=== PATIENT | female | born 1995 | race Hispanic/Latino ===

== ENCOUNTER 2019-04-28 19:24 | Emergency (ER) | payer SELFPAY ==
[~2019-04-28] VITALS: Ht 167.6 cm; Wt 149.7 kg
--- OUTSIDE RECORDS SUMMARY | 2019-04-28 19:27 | XMS REPORT ---
[facility] Address Unknown Phone Unavailable Care Team Providers Care B2B Sales Representative Name Role Phone Jolie VILLALBA Unavailable Unavailable Problems This patient has no known problems. Allergies, Adverse Reactions, Alerts This patient has no known allergies or adverse reactions. Medications This patient has no known medications. Results Test Description Test Time Test Comments Text Results Atomic Results Result Comments ABDOMEN ACUTE SERIES W/PA CXR [place] [address] Patient Name: JALEN AGUILERA MR #: [id number] : 1995 Age/Sex: 21/F Req #: [id number] Adm Physician: Ordered by: SONU VILLALBA MD Report #: [id number] Location: ER Room/Bed: Procedure: [id number] DX/ABDOMEN ACUTE SERIES W/PA CXR Exam Date: 03/26/17 Exam Time: 2245 REPORT STATUS: Signed EXAM: ABDOMEN ACUTE SERIES W/PA CXR DATE: 03/26/2017 10:10 PM Time stamp on exam: 2234 hours INDICATION: Abdominal pain COMPARISON: None FINDINGS: LINES/TUBES: None BOWEL PATTERN: No evidence for obstruction. SOFT TISSUES: No abnormal calcifications. No mass effect. LUNGS: The thorax is unremarkable BONES: No acute findings. IMPRESSION: Nonobstructive bowel gas pattern. No acute intrathoracic disease Signed by: Dr. Jef Cardoso M.D. on 03/26/2017 11:45 PM Dictated By: JEF AVINA MD [id number] Transcribed By: EDMAR on 03/26/17 2345 COPY TO: SONU VILLALBA MD
[2019-04-28 20:41] LABS: BILIRUBIN,URINE NEGATIVE (NEGATIVE); CLARITY,URINE SL CLOUDY (CLEAR); COLOR,URINE YELLOW (YELLOW); KETONES,URINE TRACE (NEGATIVE); LEUKOCYTE ESTERASE ,URINE TRACE (NEGATIVE); NITRITE,URINE NEGATIVE (NEGATIVE); PROTEIN,URINE DIPSTICK NEGATIVE (NEGATIVE); URINE UROBILINOGEN 0.2 mg/dL (0.2 - 1)
[2019-04-28 20:44] LABS: PREGNANCY TEST, URINE NEGATIVE (NEGATIVE)
[2019-04-28] MEDS ORDERED: HYDROCODONE/APAP 5MG-325MG TAB PO ONE (20:45)
[2019-04-28] MEDS ORDERED: KETOROLAC TROMETHAMINE 60 MG/2 ML VIAL IM ONE (20:45)
[2019-04-28 20:52] LABS: BACTERIA,URINE MANY /HPF; EPITHELIAL CELLS,URINE MODERATE /LPF; RBC,URINE 0-5 /HPF (0-5); TRANSITIONAL EPI CELLS,URINE FEW
[2019-04-28] MEDS ORDERED: CEFTRIAXONE SOD 1 GM VIAL IM ONE (21:00)
[2019-04-28] MEDS ORDERED: LIDOCAINE HCL 1% LOCAL INJ 20 ML VIAL ONE (21:03)
[2019-04-29 00:03] VITALS: BP 118/74
== END 2019-04-28 22:20 | disposition home or self-care (01) ==
LOC: ER 19:24
DX: R10.12 Left upper quadrant pain (principal); S29.011A Strain of muscle and tendon of front wall of thorax, initial encounter; N39.0 Urinary tract infection, site not specified; E66.01 Morbid (severe) obesity due to excess calories
CPT/HCPCS: 81001; 81025; 99283; J0696; J1885; J2001

== ENCOUNTER 2019-12-11 15:38 | Emergency (ER) | payer SELFPAY ==
[~2019-12-11] VITALS: Ht 157.5 cm; Wt 145.1 kg
[2019-12-11] MEDS ORDERED: MORPHINE SULFATE INJ 4 MG/ML INJ 1ML IV STA (15:40)
[2019-12-11] MEDS ORDERED: SODIUM CHLORIDE 0.9% 1000ML 1,000 ML IV STA (15:40)
[2019-12-11] MEDS ORDERED: ONDANSETRON HCL INJ 2MG/ML 2ML 2 MG/ML VIAL IV STA (15:40)
--- OUTSIDE RECORDS SUMMARY | 2019-12-11 15:41 | XMS REPORT ---
Author Author [facility] t Organization [facility] Address [address] [place] [address] Phone Unavailable Care Team Providers Care Outside Collector Name Role Phone KAITLIN THOMAS MD PCP Jolie VILLALBA Unavailable Payers Payer Name Policy Type Policy Number Effective Date Expiration Date [facility] Ppo [id number] I [facility] Problems Condition Name Condition Details Condition Category Status Onset Date Resolution Date Last Treatment Date Treating Clinician Comments Source BMI (body mass index), pediatric, > 99% for age BMI (b husam mass index), pediatric, > 99% for age Disease Active 2013-04-20 00:00:00 [facility] Microcytic anemia Microcytic anemia Disease Active 2013-04-20 00:00:00 [facility] Obesity Obesity Disease Active 2013-04-20 00:00:00 [facility] Menorrhagia Menorrhagia Disease Active 2013-04-20 00:00:00 [facility] Allergies, Adverse Reactions, Alerts This patient has no known allergies or adverse reactions. Family History Family Member Diagnosis Comments Start Date Stop Date Source unknown Other [facility] Social History Social Habit Start Date Stop Date Quantity Comments Source Tobacco Comment Father smokes outside [facility] Sex Assigned At [facility] Alcohol intake 2015-02-22 00:00:00 2015-02-22 00:00:00 [facility] Smoking Status Start Date Stop Date Source Never smoker [facility] Medications Ordered Medication Name Filled Medication Name Start Date Stop Da te Current Medication? Ordering Clinician Indication Dosage Frequency Signature (SIG) Comments Components Source desogestrel-ethinyl estradiol (VELIVET) 0.1/.125/.15-25 mg-m cg tablet 2015-02-22 00:00:00 Yes DUB (dysfunctional uterine ble eding) 1{tbl} QD Take 1 tablet by mouth daily. [facility] desogestrel-ethinyl estradiol (VELIVET) 0.1/.125/.15-25 mg-m cg tablet 2013-05-20 00:00:00 Yes Menorrhagia 1{tbl} QD Take 1 t ablet by mouth daily. [facility] Ferrous Sulfate 300 mg (60 mg iron) Tab 2013-04-20 00:00:00 Yes Microcytic anemia 300mg Take 300 mg by mouth. [facility] Immunizations Ordered Immunization Name Filled Immunization Name Date Status Comments Source Human Papillomavirus Vaccine 2013-05-20 00:00:00 Completed [facility] Influenza Vac Intranasal (Flumist) 2013-04-20 00:00:00 [employer] [facility] MCV4 Meningococcal Conjugate (Menactra) 2013-02-05 00:00:0 0 Completed [facility] Human Papillomavirus Vaccine 2013-02-05 00:00:00 Completed [facility] Influenza Vac Intranasal (Flumist) 2012-07-28 00:00:00 [employer] [facility] Human Papillomavirus Vaccine 2010-09-10 00:00:00 Completed [facility] Influenza Vaccine 2010-07-25 00:00:00 Completed [facility] Tdap Tetanus, diphtheria, acellular pertussis Vaccine 2008-12-27 00:00:00 Completed [facility] MCV4 Meningococcal Conjugate (Menactra) 2008-03-04 00:00:0 0 Completed [facility] PPD 2008-03-02 00:00:00 Completed [facility] Hepatitis A Vaccine 2005-02-25 00:00:00 Completed [facility] Hepatitis A Vaccine 2002-04-06 00:00:00 Completed [facility] DTaP Diphtheria, Tetanus, Acellular, Pertussis 2001-01 00:00:00 Completed [facility] Hepatitis A Vaccine 2001-02-17 00:00:00 Completed [facility] MMR Measles, Mumps, Rubella Vaccine 2001-02-17 00:00:00 Co mpleted [facility] Pneumococcal 7-valent conj 0.5 mL injection 2001-02-17 00: 00:00 Completed [facility] Poliovirus Ipv 2001-02-17 00:00:00 Completed [facility] Varicella Vaccine [facility] 1999[facility]12[facility]04 [facility], Tet[facility], Acellular, Pertussis 1999-02 00:00:00 Completed [facility] Hib Haemophilus Influenzae Type B 1999-03-07 00:00:00 Comp [facility] DTaP Diphtheria, Tetanus, Acellular, Pertussis 1998-06 00:00:00 Completed [facility] Hib Haemophilus Influenzae Type B 1998-06-29 [facility] 1998-06-29 00:00:00 Compl eted [facility] Hib Haemophilus Influenzae Type B 1998-03-31 00:00:00 Comp [facility] DTaP Diphtheria, Tetanus, Acellular, Pertussis 1997-12 00:00:00 Completed [facility] Hib Haemophilus Influenzae Type B 1998-01-11 00:00:00 Comp [facility] MMR Measles, Mumps, Rubella Vaccine 1998-01-11 00:00:00 Co mpleted [facility] Polio OPV 1998-01-11 00:00:00 Completed [facility] DTaP Diphtheria, Tetanus, Acellular, Pertussis 1997-08 00:00:00 Completed [facility] Hepatitis B Vaccine 1997-09-14 00:00:00 Completed [facility] Hib Haemophilus Influenzae Type B 1997-09-14 00:00:00 Comp leted [facility] Polio OPV 1997-09-14 00:00:00 Completed [facility] DTaP Diphtheria, Tetanus, Acellular, Pertussis 1997-03 00:00:00 Completed [facility] Hepatitis B Vaccine 1997-03-31 00:00:00 Completed [facility] Hib Haemophilus Influenzae Type B 1997-03-31 [facility] 1997-03-31 00:00:00 Completed [facility] Hepatitis B Vaccine 1996 00:00:00 Completed [facility] Procedures This patient has no known procedures. Plan of Care Planned Activity Planned Date Details Comments Source Future Scheduled Test 2020-04-20 00:00:00 IMM Influenza Seas onal Apr to September (>/= 19 yrs) [code = IMM Influenza Seasonal Apr to September (>/= 19 yrs)] [facility] Future Scheduled Test 2017 00:00:00 Cervical Cancer Sc rn (3 Yrs) [code = Cervical Cancer Scrn (3 Yrs)] [facility] Encounters Start Date/Time End Date/Time Encounter Type Ad[facility] Encounter ID Source 2019-04-28 19:24:00 2019-04-28 22:20:00 Departed Emergency Room [facility] [id number] [facility] Results Test Description Test Time Test Comments Results Result Comments Source Urine WBC 2019-04-28 20:52:00 Test Item Urine WBC (test code = 5821-4) 11-20 0-5 [facility] [id number] 20:52:00* Test Item Value Reference Range Interpretation Comments Urine RBC (test code = 61318-0) 0-5 0-5 [facility] [id number] 20:52:00* Test Item Value Reference Range Interpretation Comments Urine Bacteria (test code = 51484-7) MANY NONE [facility] Epithelial [id number] 20:52:00 * Test Item Value Reference Range Interpretation Comments Urine Epithelial Cells (test code = 67846-9) MODERATE NONE [facility] Transitional Epithelial Cells 2019-04-28 20:52:00* Test Item Value Reference Range Interpretation Comments Urine Transitional Epithelial Cells (test code = 8249-5) FEW NONE [facility] [id number] 20:45:00* Test Item Value Reference Range Interpretation Comments Urine Color (test code = 5778-6) YELLOW YELLOW [facility] [id number] 20:45:00* Test Item Value Reference Range Interpretation Comments Urine Clarity (test code = 29672-1) SL CLOUDY CLEAR [facility] Specific [id number] 20:45:00 * Test Item Value Reference Range Interpretation Comments Urine Specific [place] (test code = 5811-5) >=1.030 1.010-1.02 5 [facility] [id number] 20:45:00* Test Item Value Reference Range Interpretation Comments Urine pH (test code = 56924-8) 6 5-7 [facility] Leukocyte [id number] 20:45:00* Test Item Value Reference Range Interpretation Comments Urine Leukocyte Esterase (test code = 28190-2) TRACE NEGATIV E [facility] [id number] 20:45:00* Test Item Value Reference Range Interpretation Comments Urine Nitrite (test code = 61640-2) NEGATIVE NEGATIVE [facility] [id number] 20:45:00* Test Item Value Reference Range Interpretation Comments Urine Protein (test code = 03437-3) NEGATIVE NEGATIVE [facility] Glucose (UA)2019-04-28 20:45:00* Test Item Value Reference Range Interpretation Comments Urine Glucose (UA) (test code = 11940-0) NEGATIVE NEGATIVE [facility] [id number] 20:45:00* Test Item Value Reference Range Interpretation Comments Urine Ketones (test code = 38074-9) TRACE NEGATIVE [facility] [id number] 20:45:00* Test Item Value Reference Range Interpretation Comments Urine Urobilinogen (test code = 50296-6) 0.2 0.2-1 [facility] [id number] 20:45:00* Test Item Value Reference Range Interpretation Comments Urine Bilirubin (test code = 1977-8) NEGATIVE NEGATIVE [facility] [id number] 20:45:00* Test Item Value Reference Range Interpretation Comments Urine Blood (test code = 52076-3) TRACE NEGATIVE [facility] [id number] 20:44:00* Test Item Value Reference Range Interpretation Comments Urine Test (test code = 2106-3) NEGATIVE NEGATIVE [facility]PA CXR [facility] [address] [place] [address] Patient Name: JALEN PAL MR #: [id number] : 1995 Age/Sex: 21/F Req #: [id number] Adm Physician: Ordered by: SONU VILLALBA MD Report #: [id number] Location: ER Room/ Bed: Procedure: [id number] DX/ABDOMEN ACUTE SERIES W/P A CXR Exam Date: 03/26/17 Exam Time: 2245 REPO RT STATUS: Signed EXAM: ABDOMEN ACUTE SERIES W/PA CXR DATE: 03/26/2017 10:10 PM Time stamp on exam: 2234 hours INDICATION: Abdominal pain COMPARISO N: None FINDINGS: LINES/TUBES: None BOWEL PATTERN: No evidence fo r obstruction. SOFT TISSUES: No abnormal calcifications. No mass effect. LUNGS: The thorax is unremarkable BONES: No acute findings. IMPRESS ION: Nonobstructive bowel gas pattern. No acute intrathoracic disease Signed by: Dr. Jef Cardoso M.D. on 03/26/2017 11:45 PM Dictated By: JEF AVINA MD [id number] COPY TO: RONALD VILLALBA MD
--- OUTSIDE RECORDS SUMMARY | 2019-12-11 15:41 | XMS REPORT | Clinical Summary ---
Author Author [facility] Organization [facility] Address Unknown Phone Unavailable Care Team Providers Care Environmental Marketing Representative Name Role Phone PCP Unavailable Allergies Comments Active Allergy Reactions Severity Noted Date No Known Drug Allergies 07/28/2012 Medications End Date Status Medication Sig Dispensed Refills Start Date Active Ferrous Sulfate 300 mg Take 300 mg 30 tablet 3 (60 mg iron) by mouth. 3 TabIndications: Menorrhagia, Microcytic anemia Active desogestrel-ethinyl Take 1 tablet 28 tablet 3 04/22 estradiol (VELIVET) by mouth 3 0.1/.125/.15-25 mg-mcg daily. tabletIndications: Menorrhagia Active desogestrel-ethinyl Take 1 tablet 28 Each 1 estradiol (VELIVET) by mouth 5 0.1/.125/.15-25 mg-mcg daily. tabletIndications: DUB (dysfunctional uterine bleeding) Active Problems Problem Noted Date BMI (body mass index), pediatric, > 99% for age 1007/2012 Microcytic anemia 04/20/2013 Obesity 04/20/2013 Menorrhagia 04/20/2013 Immunizations Name Administration Dates Next Due DTaP Diphtheria, Tetanus, 02/17/2001, 03/07/1999, , 01/11/1998, Acellular, Pertussis 09/14/1997, 03/31/1997 Hepatitis A Vaccine 02/25/2005, 04/06/2002, Hepatitis B Vaccine 09/14/1997, 03/31/1997, Hib Haemophilus 03/07/1999, 06/29/1998, 05/1998, 01/11/1998, Influenzae Type B 09/14/1997, 03/31/1997 Human Papillomavirus 05/20/2013, 02/05/2013, Vaccine Influenza Vac Intranasal 04/20/2013, 07/28/2012 (Flumist) Influenza Vaccine 07/25/2010 MCV4 Meningococcal 02/05/2013, 03/04/2008 Conjugate (Menactra) MMR Measles, Mumps, 02/17/2001, 01/11/1998 Rubella Vaccine PPD 03/02/2008 Pneumococcal 7-valent 02/17/2001 conj 0.5 mL injection Polio OPV 01/11/1998, 09/14/1997, 05/1997 Poliovirus Ipv 02/17/2001 Tdap Tetanus, diphtheria, 12/27/2008 acellular pertussis Vaccine Varicella Vaccine Pedi In 12/04/1999, 06/29/1998 Clinic Family History Medical History Relation Name Comments Other negative Relation Name Status Comments Brother Alive 20 and 16 y/o Father Alive Maternal Grandfather sleep apnea (Age 61) Maternal Grandmother Alive Mother Alive Paternal Grandfather Alive Paternal Grandmother Alive Sister Alive 17 y/o Social History Date Tobacco Use Types Packs/Day Years Used Passive Smoke Exposure - Never Smoker Comments: Father smokes outside Drinks/Week oz/Week Comments Alcohol Use No Sex Assigned at Date Recorded Not on file Industry Job Start Date Occupation Not on file Not on file Not on file Travel End Travel History Travel Start No recent travel history available. Last Filed Vital Signs Not on file Plan of Treatment Health Maintenance Due Date Last Done Comments Cervical Cancer Scrn (3 2017 Yrs) IMM Influenza Seasonal 04/20/2020 Oct to September (>/= 19 yrs) Results Not on fileafter 12/10/2018 Insurance Type Payer Benefit Subscriber ID Effective Phone Address Plan / Dates Group [facility] SELF-PAY SELF-PAY xxxxxxxxx [phone] [place] [address] Guarantor Name Account Relation to Date of Phone Jennifer carrington Address Type Patient JALEN PAL/F Head of 1995 [address] [facility] Household (Home) [place], [place] [address] (Self) JALEN PAL Head of 1995 [address] House[address] ([facility] [place] [address] (Self)
--- NOTE | 2019-12-11 15:42 | Emergency Department Note ---
History of Present Illnes History of Present Illness History of Present Illness This is a 23 year old female . Historian: Patient Arrival Mode: Car Traveling Repair Accountant Required: No Onset (how long ago): week(s) (2) Radiation: abdomen Severity: severe Onset quality: gradual Duration (how long): week(s) (2) Timing of current episode: intermittent Progression: worsening Chronicity: new Relieving factors: none Exacerbating factors: none Treatments prior to arrival: none (RAE WIGGINS NP) Past Medical/Family History Physician Review I have reviewed the patient's past medical and family history. Any updates have been documented here. (RAE WIGGINS NP) Past Medical History Past Medical History: None Past Surgical History: Appendectomy (RAE WIGGINS NP) Social History Any Illegal Drug Use: No TB Exposure/Symptoms: No Physically hurt or threatened: No (RAE WIGGINS NP) Family History Family history of heart diseas: Yes (RAE WIGGINS NP) Other Last Tetanus: UTD Any Pre-Existing Lines (PICC,: No Is patient up to date on immun: No (unknown) (RAE WIGGINS NP) Review of Systems ROS Narrative PATIENT C/O X 2 WEEKS RIGHT UPPER QUADRANT PAIN DESCRIBED INTERMITTENT SHARP AND BLOATING SENSATION. TODAY PAIN BECAME INTOLERABLE. MADE WORSE WITH SITTING AND AFTER EATING. 1130 ATE 3 CRACKERS, DENIES ANY N/V RATES PAIN 10/10 AT THIS TIME (RAE WIGGINS NP) Review of Systems Constitutional: no symptoms EENTM: no symptoms Cardiovascular: no symptoms Respiratory: no symptoms Gastrointestinal: abdominal pain Genitourinary: no symptoms Musculoskeletal: no symptoms Neurological: no symptoms Psychological: no symptoms Endocrine: no symptoms Hematological/Lymphatic: no symptoms Review of other systems All other systems reviewed and negative. (RAE WIGGINS NP) Physical Exam Related Data Allergies: Coded Allergies: No Known Allergies (Unverified , 12/11/19) Vital signs reviewed: Yes (RAE WIGGINS NP) Physical Exam CONSTITUTIONAL Constitutional: well-developed, well-nourished HENT HENT: normocephalic, atraumatic, oropharynx clear/moist, nose normal HENT L/R: left ext ear normal, right ext ear normal EYES Eyes: PERRL, conjunctivae normal NECK Neck: ROM normal PULMONARY Pulmonary: effort normal, breath sounds normal CARDIOVASCULAR Cardiovascular: regular rhythm, heart sounds normal, capillary refill normal, normal rate GASTROINTESTINAL Abdominal: soft, bowel sounds normal, tender (over RUQ x 2 weeks that started gradually and today severe and constant) GENITOURINARY Genitourinary: exam deferred SKIN Skin: warm, dry MUSCULOSKELETAL Musculoskeletal: ROM normal NEUROLOGICAL Neurological: alert, oriented x 3, no gross motor or sensory deficits PSYCHOLOGICAL Psychological: mood/affect normal, judgement normal (RAE WIGGINS NP) Results Laboratory Lab results reviewed: Yes (RAE WIGGINS NP) Imaging Imaging results reviewed: Yes (RAE WIGGINS NP) Critical Care Time Subsequent provider I assumed direction of critical care for this patient from another provider of my specialty. (RAE WIGGINS NP) Assessment & Plan Reassessment Reassessment time: 16:45 Reassessment Patient states pain is slightly better, awaiting CT scan (RAE WIGGINS NP) Assessment & Plan Final Impression: (1) UTI (urinary tract infection) (2) GERD (gastroesophageal reflux disease) Assessment & Plan 1755- After the GI cocktail patient feels much better, rates pain very mild at 1-2/10. Discussed DC treatment plan. Discussed medications. All questions answered. (RAE WIGGINS NP) Depart Disposition: HOME, SELF-CARE Last Vital Signs T-98.2 HR-85 R-18 B/P-128/82 X6Ndhk-45% RA (RAE WIGGINS NP) Home Meds No Active Prescriptions or Reported Meds Medications in the ED IVF MSO4 Zofran GI Cocktail (RAE WIGGINS NP) Physician Attestation Provider Attestation The patient's history, exam findings, diagnostics, and a summary of any interventions or procedures was reviewed in detail with our ROMELIA. I personally interviewed and examined the patient, and I have reviewed and agree with the HPI andexam. My personal exam shows morbid obesity, moderate tenderness RUQ without R/G, NABS. I confirm the diagnosis as documented by the ROMELIA. I have reviewed and agree with the care plan articulated in the disposition section. (NIDHI SALGADO MD) RAE WIGGINS NP December 11, 2019 15:42 NIDHI SALGADO MD December 11, 2019 18:11
[2019-12-11 16:20] LABS: BASOPHILS # (AUTO) 0.1 (0.0-0.1); BASOPHILS % 0.5 % (0.0-1.0); EOSINOPHILS # (AUTO) 0.1 (0.0-0.4); EOSINOPHILS % 0.7 % (0.0-6.0); HEMATOCRIT 43.2 % (34.2-44.1); HEMOGLOBIN 14.1 g/dL (12.0-16.0); LYMPHOCYTES # (AUTO) 3.5 (1.0-3.2); LYMPHOCYTES % 33.2 % (18.0-39.1); MEAN CORPUSCULAR HEMOGLOBIN 27.3 pg (28-32); MEAN CORPUSCULAR HGB CONC 32.6 g/dL (31-35); MEAN CORPUSCULAR VOLUME 83.7 fL (81-99); MONOCYTES # (AUTO) 0.8 (0.2-0.8); MONOCYTES % 7.2 % (4.4-11.3); NEUTROPHILS # (AUTO) 6.1 (2.1-6.9); NEUTROPHILS % 58.1 % (38.7-80.0); PLATELET COUNT 235 x10e3/uL (140-360); RED BLOOD COUNT 5.16 x10e6/uL (3.6-5.1); RED CELL DISTRIBUTION WIDTH 13.6 % (11.7-14.4)
[2019-12-11 16:32] LABS: BILIRUBIN,URINE NEGATIVE (NEGATIVE); CLARITY,URINE CLEAR (CLEAR); COLOR,URINE YELLOW (YELLOW); KETONES,URINE NEGATIVE (NEGATIVE); LEUKOCYTE ESTERASE ,URINE SMALL (NEGATIVE); NITRITE,URINE NEGATIVE (NEGATIVE); PROTEIN,URINE DIPSTICK NEGATIVE (NEGATIVE); URINE UROBILINOGEN 0.2 mg/dL (0.2 - 1)
[2019-12-11 16:33] LABS: PREGNANCY TEST, URINE NEGATIVE (NEGATIVE)
[2019-12-11 16:37] LABS: ALANINE AMINOTRANSFERASE 26 IU/L (0-55); ALBUMIN/GLOBULIN RATIO 1.1 (0.8-2.0); ALKALINE PHOSPHATASE 87 IU/L (40-150); ANION GAP 14.8 mmol/L (8-16); BLOOD UREA NITROGEN 8 mg/dL (7-26); BUN/CREATININE RATIO 11 (6-25); CALCIUM 9.4 mg/dL (8.4-10.2); CARBON DIOXIDE 21 mmol/L (22-29); CHLORIDE 106 mmol/L (98-107); EST GLOMERULAR FILTRATION RATE > 60 ML/MIN (60-); GLUCOSE 88 mg/dL (74-118); LIPASE 10 U/L (8-78); POTASSIUM 3.8 mmol/L (3.5-5.1); SODIUM 138 mmol/L (136-145)
[2019-12-11] MEDS ORDERED: DICYCLOMINE HCL 20 MG/2 ML VIAL IM ONE (16:45)
[2019-12-11] MEDS ORDERED: SODIUM CHLORIDE 0.9% 50ML 50 ML ONE (16:58)
[2019-12-11] MEDS ORDERED: IOPAMIDOL 370 MG/ML 200 ML INFUS..BTL INJ ONE (16:59)
[2019-12-11 17:01] LABS: BACTERIA,URINE MANY /HPF; EPITHELIAL CELLS,URINE MANY /LPF; RBC,URINE 0-5 /HPF (0-5)
--- NOTE | 2019-12-11 17:29 | Diagnostic Imaging Report ---
EXAMINATION: CT of the abdomen and pelvis with contrast. TECHNIQUE: Spiral CT images of the abdomen and pelvis were performed from the lung bases to the lesser trochanters after the intravenous administration of 100 cc of Isovue 370 and the oral administration of water. Coronal and sagittal reformatted images were obtained. COMPARISON: None. CLINICAL HISTORY:Right upper quadrant abdominal pain for 2 weeks DISCUSSION: Exam limited by patient's large body habitus. ABDOMEN/PELVIS: LOWER THORAX:Unremarkable. HEPATOBILIARY: No focal hepatic lesions. No intra or extrahepatic biliary ductal dilation. GALLBLADDER: No radio-opaque stones or sludge. No wall thickening. SPLEEN: No splenomegaly. PANCREAS: No focal masses or ductal dilatation. ADRENALS: No adrenal nodules. KIDNEYS/URETERS: No hydronephrosis, stones, or solid mass lesions. PELVIC ORGANS/BLADDER: Bladder and uterus are unremarkable. No adnexal masses. PERITONEUM/RETROPERITONEUM: No free air or fluid. LYMPH NODES: No intra-abdominal, retroperitoneal, pelvic or inguinal lymphadenopathy. VESSELS: The celiac trunk,superior and inferior mesenteric and bilateral renal arteries are patent The portal, superior mesenteric and splenic veins are patent. GI TRACT: No bowel dilation or evidence of obstruction. No pericolonic inflammatory changes. Status post appendectomy with moderate-sized appendiceal stump. No periappendiceal inflammatory changes. BONES AND SOFT TISSUE: No aggressive lytic or suspicious sclerotic lesions No soft tissue abnormalities. IMPRESSION: 1. No acute abdominopelvic abnormalities. Specifically, no acute abnormal findings in the right upper quadrant to explain the patient's pain. Signed by: Dr. Sridhar Romano M.D. on 12/11/2019 5:26 PM
[2019-12-11] MEDS ORDERED: CEFTRIAXONE SOD 1 GM/NS 50 ML 50 ML IV ONE (17:30)
[2019-12-11] MEDS ORDERED: LIDOCAINE VISC 2% SOLN 15 ML UDC ONE (17:41)
[2019-12-11] MEDS ORDERED: BELLADONNA ALK/PHENOBARBITAL 5 ML UDC ONE (17:41)
[2019-12-11] MEDS ORDERED: MAGNESIUM/ALUMINUM/SIMETHICONE 30 ML UDC ONE (17:42)
[2019-12-11] MEDS ORDERED: DONNATAL/LIDOCAINE/MAALOX 30 ML SUSP PO ONE (17:45)
[2019-12-11 18:18] VITALS: BP 109/64
== END 2019-12-11 18:19 | disposition home or self-care (01) ==
LOC: ER 15:38
DX: R10.11 Right upper quadrant pain (principal); N39.0 Urinary tract infection, site not specified; K21.9 Gastro-esophageal reflux disease without esophagitis; E66.01 Morbid (severe) obesity due to excess calories
CPT/HCPCS: 36415; 74177; 80053; 81001; 81025; 83690; 85025; 99284; J0500; J0696; J2270; J2405; J7030; Q9967

== ENCOUNTER 2020-12-06 22:45 | Emergency (ER) | payer SELFPAY ==
[~2020-12-06] VITALS: Ht 157.5 cm; Wt 145.1 kg
[2020-12-06] MEDS ORDERED: PANTOPRAZOLE 40 MG 10ML VIAL IV STA (23:35)
[2020-12-06] MEDS ORDERED: KETOROLAC TROMETHAMINE 30 MG/ML VIAL IV STA (23:35)
[2020-12-06] MEDS ORDERED: ONDANSETRON HCL INJ 2MG/ML 2ML 2 MG/ML VIAL IV STA (23:35)
[2020-12-06] MEDS ORDERED: DICYCLOMINE HCL 20 MG/2 ML VIAL IM ONE (23:45)
[2020-12-06 23:47] LABS: BASOPHILS # (AUTO) 0.1 (0.0-0.1); BASOPHILS % 0.5 % (0.0-1.0); EOSINOPHILS # (AUTO) 0.1 (0.0-0.4); EOSINOPHILS % 0.5 % (0.0-6.0); HEMATOCRIT 40.8 % (34.2-44.1); MEAN CORPUSCULAR HEMOGLOBIN 26.6 pg (28-32); MEAN CORPUSCULAR HGB CONC 31.9 g/dL (31-35); MEAN CORPUSCULAR VOLUME 83.6 fL (81-99); MONOCYTES % 7.8 % (4.4-11.3); NEUTROPHILS % 57.8 % (38.7-80.0); PLATELET COUNT 211 x10e3/uL (140-360); RED BLOOD COUNT 4.88 x10e6/uL (3.6-5.1); RED CELL DISTRIBUTION WIDTH 14.9 % (11.7-14.4)
[2020-12-07 00:04] LABS: AMYLASE 32 U/L (25-125); LIPASE 11 U/L (8-78)
[2020-12-07 00:07] LABS: ALANINE AMINOTRANSFERASE 27 IU/L (0-55); ALBUMIN 3.8 g/dL (3.5-5.0); ALBUMIN/GLOBULIN RATIO 1.2 (0.8-2.0); ALKALINE PHOSPHATASE 80 IU/L (40-150); ANION GAP 14.1 mmol/L (8-16); BLOOD UREA NITROGEN 9 mg/dL (7-26); BUN/CREATININE RATIO 14 (6-25); CARBON DIOXIDE 22 mmol/L (22-29); CHLORIDE 107 mmol/L (98-107); CREATININE, SERUM 0.65 mg/dL (0.57-1.11); EST GLOMERULAR FILTRATION RATE > 60 ML/MIN (60-); GLUCOSE 87 mg/dL (74-118); POTASSIUM 4.1 mmol/L (3.5-5.1); SODIUM 139 mmol/L (136-145)
[2020-12-07 00:36] LABS: CLARITY,URINE CLOUDY (CLEAR); COLOR,URINE YELLOW (YELLOW); KETONES,URINE NEGATIVE (NEGATIVE); LEUKOCYTE ESTERASE ,URINE SMALL (NEGATIVE); NITRITE,URINE NEGATIVE (NEGATIVE); PROTEIN,URINE DIPSTICK NEGATIVE (NEGATIVE); URINE UROBILINOGEN 0.2 mg/dL (0.2 - 1)
[2020-12-07 00:45] LABS: AMORPHOUS SEDIMENT,URINE FEW (FEW); BACTERIA,URINE FEW /HPF; EPITHELIAL CELLS,URINE MANY /LPF; RBC,URINE 0-5 /HPF (0-5)
== END 2020-12-07 02:39 | disposition home or self-care (01) ==
LOC: ER 23:39
DX: R10.13 Epigastric pain (principal); R10.11 Right upper quadrant pain; K21.9 Gastro-esophageal reflux disease without esophagitis
CPT/HCPCS: 36415; 76705; 80053; 81001; 82150; 83690; 84702; 85025; 99284; C9113; J0500; J1885; J2405

== ENCOUNTER 2021-05-03 20:17 | Emergency (ER) | payer OTHER ==
[~2021-05-03] VITALS: Ht 157.5 cm; Wt 149.7 kg
[2021-05-03 21:12] LABS: ANION GAP 12.6 mmol/L (8-16); CALCIUM 8.3 mg/dL (8.4-10.2); CREATININE, SERUM 0.71 mg/dL (0.57-1.11); POTASSIUM 3.6 mmol/L (3.5-5.1)
[2021-05-03 21:49] LABS: BASOPHILS % 0.3 % (0.0-1.0); EOSINOPHILS % 0.5 % (0.0-6.0); HEMATOCRIT 39.2 % (34.2-44.1); HEMOGLOBIN 12.4 g/dL (12.0-16.0); LYMPHOCYTES # (AUTO) 2.1 (1.0-3.2); LYMPHOCYTES % 24.4 % (18.0-39.1); MEAN CORPUSCULAR HEMOGLOBIN 27.4 pg (28-32); MEAN CORPUSCULAR HGB CONC 31.6 g/dL (31-35); MEAN CORPUSCULAR VOLUME 86.5 fL (81-99); MONOCYTES # (AUTO) 0.7 (0.2-0.8); MONOCYTES % 7.6 % (4.4-11.3); NEUTROPHILS # (AUTO) 5.8 (2.1-6.9); NEUTROPHILS % 66.9 % (38.7-80.0); PLATELET COUNT 217 x10e3/uL (140-360); RED BLOOD COUNT 4.53 x10e6/uL (3.6-5.1); RED CELL DISTRIBUTION WIDTH 13.8 % (11.7-14.4)
[2021-05-03] MEDS ORDERED: KETOROLAC TROMETHAMINE 30 MG/ML VIAL IV STA (21:58)
== END 2021-05-03 23:08 | disposition home or self-care (01) ==
LOC: ER 20:35
DX: N93.8 Other specified abnormal uterine and vaginal bleeding (principal)
CPT/HCPCS: 36415; 80048; 84702; 85025; 99284; J1885

== ENCOUNTER 2021-07-29 23:38 | Emergency (ER) | payer SELFPAY ==
[~2021-07-29] VITALS: Ht 157.5 cm; Wt 149.7 kg
[2021-07-29] MEDS ORDERED: DEXAMETHASONE SOD PHOS 10 MG/1 ML VIAL ONE ×2 (23:57→23:59)
[2021-07-30] MEDS ORDERED: DEXAMETHASONE SOD PHOS 10 MG/1 ML VIAL IM ONE
== END 2021-07-30 | disposition home or self-care (01) ==
LOC: ER 23:41
DX: H66.92 Otitis media, unspecified, left ear (principal); R05.9 Cough, unspecified; R09.81 Nasal congestion
CPT/HCPCS: 99282; J1100

== ENCOUNTER 2021-11-04 01:02 | Emergency (ER) | payer OTHER ==
[~2021-11-04] VITALS: Ht 157.5 cm; Wt 149.7 kg
[2021-11-04] MEDS ORDERED: SODIUM CHLORIDE 0.9% 1000ML 1,000 ML ONE (01:18)
[2021-11-04] MEDS ORDERED: SODIUM CHLORIDE 0.9% 1000ML 1,000 ML IV ONE (01:30)
[2021-11-04 01:47] LABS: BASOPHILS % 0.4 % (0.0-1.0); EOSINOPHILS # (AUTO) 0.1 (0.0-0.4); EOSINOPHILS % 0.5 % (0.0-6.0); HEMATOCRIT 39.1 % (34.2-44.1); HEMOGLOBIN 12.6 g/dL (12.0-16.0); LYMPHOCYTES # (AUTO) 2.5 (1.0-3.2); LYMPHOCYTES % 26.9 % (18.0-39.1); MEAN CORPUSCULAR HEMOGLOBIN 27.9 pg (28-32); MEAN CORPUSCULAR HGB CONC 32.2 g/dL (31-35); MEAN CORPUSCULAR VOLUME 86.5 fL (81-99); MONOCYTES # (AUTO) 0.7 (0.2-0.8); MONOCYTES % 7.7 % (4.4-11.3); NEUTROPHILS % 64.2 % (38.7-80.0); PLATELET COUNT 206 x10e3/uL (140-360); RED BLOOD COUNT 4.52 x10e6/uL (3.6-5.1); RED CELL DISTRIBUTION WIDTH 14.6 % (11.7-14.4)
[2021-11-04 01:49] LABS: CLARITY,URINE CLEAR (CLEAR); COLOR,URINE YELLOW (YELLOW); LEUKOCYTE ESTERASE ,URINE NEGATIVE (NEGATIVE); NITRITE,URINE NEGATIVE (NEGATIVE)
[2021-11-04 01:50] LABS: BACTERIA,URINE MODERATE /HPF; EPITHELIAL CELLS,URINE MODERATE /LPF; KETONES,URINE NEGATIVE (NEGATIVE); PROTEIN,URINE DIPSTICK NEGATIVE (NEGATIVE); URINE UROBILINOGEN 0.2 mg/dL (0.2 - 1)
[2021-11-04 02:01] LABS: ALBUMIN 3.5 g/dL (3.5-5.0); ANION GAP 10.3 mmol/L (8-16); CALCIUM 8.4 mg/dL (8.4-10.2); CREATININE, SERUM 0.84 mg/dL (0.57-1.11); POTASSIUM 3.3 mmol/L (3.5-5.1)
[2021-11-04] MEDS ORDERED: CEPHALEXIN500 MG PO (02:11)
[2021-11-04 02:12] VITALS: BP 111/58
== END 2021-11-04 03:09 | disposition home or self-care (01) ==
LOC: ER 01:06
DX: O23.41 Unspecified infection of urinary tract in pregnancy, first trimester (principal); R10.2 Pelvic and perineal pain
CPT/HCPCS: 36415; 80053; 81001; 81025; 84702; 85025; 99283; J7030

== ENCOUNTER 2022-11-28 22:30 | Emergency (ER) | payer MEDICARE, OTHER ==
[~2022-11-28] VITALS: Ht 157.5 cm; Wt 149.7 kg
[~2022-11-28 22:30] MED LIST: CEPHALEXIN500 MG PO
[2022-11-28] MEDS ORDERED: FAMOTIDINE 20 MG/2 ML VIAL IV STA (23:01)
[2022-11-28 23:15] LABS: BASOPHILS % 0.3 % (0.0-1.0); EOSINOPHILS % 0.5 % (0.0-6.0); HEMATOCRIT 37.4 % (34.2-44.1); LYMPHOCYTES # (AUTO) 2.4 (1.0-3.2); LYMPHOCYTES % 40.7 % (18.0-39.1); MEAN CORPUSCULAR HEMOGLOBIN 25.9 pg (28-32); MEAN CORPUSCULAR HGB CONC 32.1 g/dL (31-35); MEAN CORPUSCULAR VOLUME 80.8 fL (81-99); MONOCYTES # (AUTO) 0.8 (0.2-0.8); MONOCYTES % 13.3 % (4.4-11.3); NEUTROPHILS # (AUTO) 2.6 (2.1-6.9); NEUTROPHILS % 44.9 % (38.7-80.0); PLATELET COUNT 181 x10e3/uL (140-360); RED BLOOD COUNT 4.63 x10e6/uL (3.6-5.1); RED CELL DISTRIBUTION WIDTH 15.4 % (11.7-14.4)
[2022-11-28 23:33] LABS: CLARITY,URINE SL CLOUDY (CLEAR); COLOR,URINE YELLOW (YELLOW); KETONES,URINE NEGATIVE (NEGATIVE); LEUKOCYTE ESTERASE ,URINE SMALL (NEGATIVE); NITRITE,URINE NEGATIVE (NEGATIVE); PROTEIN,URINE DIPSTICK NEGATIVE (NEGATIVE)
[2022-11-28 23:37] LABS: ALBUMIN 3.5 g/dL (3.5-5.0); ANION GAP 11.9 mmol/L (8-16); CALCIUM 8.3 mg/dL (8.4-10.2); CREATININE, SERUM 0.74 mg/dL (0.57-1.11); POTASSIUM 3.9 mmol/L (3.5-5.1)
[2022-11-28 23:39] LABS: AMORPHOUS SEDIMENT,URINE FEW (FEW); BACTERIA,URINE FEW /HPF; EPITHELIAL CELLS,URINE MANY /LPF; RBC,URINE 0-5 /HPF (0-5)
[2022-11-29] MEDS ORDERED: IOPAMIDOL 370 MG/ML 100 ML INFUS..BTL INJ ONE (00:14)
[2022-11-29 01:26] VITALS: O2SAT 99
[2022-11-29] MEDS ORDERED: ACETAMINOPHEN/CODEINE 300MG - 30MG TAB PO STA (01:27)
[2022-11-29] MEDS ORDERED: ACETAMINOPHEN-1 EAC4 PO (01:29)
[2022-11-29] MEDS ORDERED: ACETAMINOPHEN/CODEINE 300MG - 30MG TAB ONE (01:29)
== END 2022-11-29 01:37 | disposition home or self-care (01) ==
LOC: ER 22:57
DX: R10.13 Epigastric pain (principal); R11.2 Nausea with vomiting, unspecified; R19.7 Diarrhea, unspecified
CPT/HCPCS: 36415; 74177; 80053; 81001; 81025; 83690; 85025; 99284; Q9967